=== PATIENT | male | born 1995 | race Caucasian/White ===

== ENCOUNTER 2016-08-07 04:16 | Emergency (ER) | payer OTHER ==
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
--- NOTE | 2016-08-07 06:41 | ED ORDER SUMMARY ---
..... Patient: ISHA SKAGGS OrderSheet [facility] VisitID: [id number] [place] [address] 20y, M Registration Date/Time: 08/07/2016 ORDER SHEET Weight: 97.5 kg Allergies: No Known Drug Allergy GENERAL ORDERS: Chest 2V Urgent (04:29 08/07/2016 Vincent Connors) (Ack 4:31 AMcQuoid ER Tech1) (4:43 CBradburn R.N.) Lumbar Spine 5V Urgent (04:29 08/07/2016 Vincent Connors) (Ack 4:31 AMcQuoid ER Tech1) (4:43 CBradburn R.N.) CT Lumbar Spine wo Cont Urgent (05:02 08/07/2016 Vincent Connors) (Ack 5:05 AMcQuoid ER Tech1) (5:53 CBradjameson R.N.) C-Collar (06:31 08/07/2016 Vincent Connors) (6:40 CBradburn R.N.) MEDICATION ORDERS: Motrin PO 600 mg (NOW) (04:34 08/07/2016 Vinecnt Connors) (Ack 4:34 Zhang R.N.) (4:39 CBradjameson R.N.) Tylenol PO 650 mg (NOW) (04:34 08/07/2016 Vincent Connors) (Ack 4:34 Zhang R.N.) (4:39 Zhang R.N.) Zofran ODT PO 4 mg (NOW) (04:49 08/07/2016 Vincent Connors) (Ack 4:53 Zhang R.N.) (5:10 Zhang R.N.) IV FLUIDS: Morphine IV 4 mg (HIGH ALERT MEDICATION, NOW) (05:27 08/07/2016 Vincent Connors) (5:35 CBradjameson R.N.) ORDER SHEET NOTES: [Electronically signed by Katie Lawrence R.N. (07:20 08/07/2016)] [Electronically signed by Jack Martin Dr. (04:33 08/14/2016)] [Electronically locked/signed by Katie Lawrence R.N. (07:20 08/07/2016)]
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
--- NOTE | 2016-08-07 06:41 | ED ORDER SUMMARY ---
..... Patient: ISHA SKAGGS OrderSheet [facility] VisitID: [id number] [place] [address] 20y, M Registration Date/Time: 08/07/2016 ORDER SHEET Weight: 97.5 kg Allergies: No Known Drug Allergy GENERAL ORDERS: Chest 2V Urgent (04:29 08/07/2016 Vincent Connors) (Ack 4:31 AMcQuoid ER Tech1) (4:43 CBradburn R.N.) Lumbar Spine 5V Urgent (04:29 08/07/2016 Vincent Connors) (Ack 4:31 AMcQuoid ER Tech1) (4:43 CBradburn R.N.) CT Lumbar Spine wo Cont Urgent (05:02 08/07/2016 Vincent Connors) (Ack 5:05 AMcQuoid ER Tech1) (5:53 CBradjameson R.N.) C-Collar (06:31 08/07/2016 Vincent Cononrs) (6:40 CBradburn R.N.) MEDICATION ORDERS: Motrin PO 600 mg (NOW) (04:34 08/07/2016 Vincent Connors) (Ack 4:34 Zhang R.N.) (4:39 CBradjameson R.N.) Tylenol PO 650 mg (NOW) (04:34 08/07/2016 Vincent Connors) (Ack 4:34 Zhang R.N.) (4:39 Zhang R.N.) Zofran ODT PO 4 mg (NOW) (04:49 08/07/2016 Vincent Connors) (Ack 4:53 Zhang R.N.) (5:10 Zhang R.N.) IV FLUIDS: Morphine IV 4 mg (HIGH ALERT MEDICATION, NOW) (05:27 08/07/2016 Vincent Connors) (5:35 CBradjameson R.N.) ORDER SHEET NOTES: [Electronically signed by Katie Lawrence R.N. (07:20 08/07/2016)] [Electronically signed by Jack Martin Dr. (04:33 08/14/2016)] [Electronically locked/signed by Katie Lawrence R.N. (07:20 08/07/2016)]
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
--- NOTE | 2016-08-14 04:33 | ED MAR SUMMARY ---
..... Medication Administration Record [facility] [address] [facility] [place] [address] Patient: ISHA SKAGGS Visit ID: [id number] 20y, M Weight: 97.5 kg Height/Length: 71 in BMI: 30 ALLERGIES: No Known Drug Allergy Given 04:35 08/07/2016 Katie Lawrence R.N. Medication Administered: MOTRIN [PO], Dose: 600 mg Tablets PO. Medication Ordered: Motrin PO 600 mg (NOW). Given 04:35 08/07/2016 Katie Lawrence R.N. Medication Administered: TYLENOL [PO] (ACETAMINOPHEN), Dose: 650 mg Tablets PO. Medication Ordered: Tylenol PO 650 mg (NOW). Given 04:55 08/07/2016 Katie Lawrence R.N. Medication Administered: ZOFRAN ODT [PO] (ONDANSETRON), Dose: 4 mg Oral Disintegrating Tablets PO. Medication Ordered: Zofran ODT PO 4 mg (NOW). Given 05:32 08/07/2016 Katie Lawrence R.N. Medication Administered: MORPHINE [IVP], Dose: 4 mg IVP over 2 minute(s), Site: #1 right forearm. Medication Ordered: Morphine IV 4 mg (HIGH ALERT MEDICATION, NOW).
--- NOTE | 2016-08-14 04:33 | ED MED RECONCILIATION SUMMARY ---
Patient: ISHA SKAGGS Fabi Medication Reconciliation Report [facility] VisitID: [id number] [address] [place] [address] 20y, M Registration Date/Time: 08/07/2016 Weight: 97.5 kg Height/Length: 71 in. BMI: 30.0 ALLERGIES: No Known Drug Allergy The patient's Home Medications are listed below: NONE. The source(s) of the original Home Medication information: Not obtained. The following Medications were given to the patient in the Emergency Department: Motrin [PO] PO 600 mg, administered: 08/07/2016 4:35:00 AM Tylenol [PO] PO 650 mg, administered: 08/07/2016 4:35:00 AM Zofran ODT [PO] PO 4 mg, administered: 08/07/2016 4:55:00 AM Morphine [IVP] IVP 4 mg, administered: 08/07/2016 5:32:00 AM The following Medications were prescribed to the patient: None.
--- NOTE | 2016-08-14 04:33 | ED MED RECONCILIATION SUMMARY ---
Patient: ISHA SKAGGS Fabi Medication Reconciliation Report [facility] VisitID: [id number] [address] [place] [address] 20y, M Registration Date/Time: 08/07/2016 Weight: 97.5 kg Height/Length: 71 in. BMI: 30.0 ALLERGIES: No Known Drug Allergy The patient's Home Medications are listed below: NONE. The source(s) of the original Home Medication information: Not obtained. The following Medications were given to the patient in the Emergency Department: Motrin [PO] PO 600 mg, administered: 08/07/2016 4:35:00 AM Tylenol [PO] PO 650 mg, administered: 08/07/2016 4:35:00 AM Zofran ODT [PO] PO 4 mg, administered: 08/07/2016 4:55:00 AM Morphine [IVP] IVP 4 mg, administered: 08/07/2016 5:32:00 AM The following Medications were prescribed to the patient: None.
--- NOTE | 2016-08-14 04:33 | ED MAR SUMMARY ---
..... Medication Administration Record [facility] [address] [facility] [place] [address] Patient: ISHA SKAGGS Visit ID: [id number] 20y, M Weight: 97.5 kg Height/Length: 71 in BMI: 30 ALLERGIES: No Known Drug Allergy Given 04:35 08/07/2016 Katie Lawrence R.N. Medication Administered: MOTRIN [PO], Dose: 600 mg Tablets PO. Medication Ordered: Motrin PO 600 mg (NOW). Given 04:35 08/07/2016 Katie Lawrence R.N. Medication Administered: TYLENOL [PO] (ACETAMINOPHEN), Dose: 650 mg Tablets PO. Medication Ordered: Tylenol PO 650 mg (NOW). Given 04:55 08/07/2016 Katie Lawrence R.N. Medication Administered: ZOFRAN ODT [PO] (ONDANSETRON), Dose: 4 mg Oral Disintegrating Tablets PO. Medication Ordered: Zofran ODT PO 4 mg (NOW). Given 05:32 08/07/2016 Katie Lawrence R.N. Medication Administered: MORPHINE [IVP], Dose: 4 mg IVP over 2 minute(s), Site: #1 right forearm. Medication Ordered: Morphine IV 4 mg (HIGH ALERT MEDICATION, NOW).
== END 2016-08-07 07:16 | disposition short-term general hospital (02) ==
LOC: ED SRH 04:16
DX: S22.088A Other fracture of T11-T12 vertebra, initial encounter for closed fracture (principal); S32.010A Wedge compression fracture of first lumbar vertebra, initial encounter for closed fracture; V47.5XXA Car driver injured in collision with fixed or stationary object in traffic accident, initial encounter; Y93.89 Activity, other specified; Y99.9 Unspecified external cause status; Y92.9 Unspecified place or not applicable